=== PATIENT | female | born 1970 | race African-American/Black ===

== ENCOUNTER 2019-05-24 14:47 | Emergency (ER) | payer MEDICAID ==
[~2019-05-24] VITALS: Ht 160 cm; Wt 59.0 kg
[2019-05-24 14:54] VITALS: BP 135/89
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
--- NOTE | 2019-05-24 15:25 | NUR ---
ED Nurse Note: COLLECTED URINE THEN SENT.
[2019-05-24] MEDS ORDERED: NAPROXEN250 MG ORAL (15:26)
[2019-05-24] MEDS ORDERED: ROBAXIN-750750 MG PO (15:26)
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
[2019-05-24] MEDS ORDERED: Ketorolac 30mg Inj IM ONE (15:30)
[2019-05-24] MEDS ORDERED: Acetaminophen 500mg (ES) tab ORAL ONE (15:30)
[2019-05-24 15:42] VITALS: BP 129/82
--- NOTE | 2019-05-24 15:42 | NUR ---
ER DISCHARGE NOTE: Patient is cleared to be discharged per ERMD, pt is aox4, on room air, with stable vital signs. pt was given dc and prescription instructions, pt was able to verbalize understanding, pt id band removed. pt is able to ambulate with steady gait. pt took all belongings.
== END 2019-05-24 15:45 | disposition home or self-care (01) ==
LOC: EMR 15:25
DX: M54.5 Low back pain (principal); M54.6 Pain in thoracic spine; M25.512 Pain in left shoulder; T14.8XXA Other injury of unspecified body region, initial encounter; V43.52XA Car driver injured in collision with other type car in traffic accident, initial encounter; Y92.410 Unspecified street and highway as the place of occurrence of the external cause
CPT/HCPCS: 81025; 96372; J1885; Z7502; 99283

== ENCOUNTER 2019-06-30 07:35 | Inpatient (IN) | payer MEDICAID ==
[2019-06-30] VITALS (13 sets, daily range): BP systolic 104–128; BP diastolic 75–86
[~2019-06-30] VITALS: Ht 157.5 cm; Wt 75.9 kg
[~2019-06-30 07:35] MED LIST: ALBUTEROL SULF8.5 GM INH; FERROUS SULFAT325 MG ORAL; IBUPROFEN600 MG ORAL; NAPROXEN250 MG ORAL; ROBAXIN-750750 MG PO; TAMIFLU75 MG ORAL
--- NOTE | 2019-06-30 07:47 | NUR ---
ED Nurse Note: Pt ambulated to ER d/t productive cough, lightheadedness, SOB. Pt has hx of asthma. Placed on bed on high-oliveira's position; gown. Will continue to monitor.
--- NOTE | 2019-06-30 07:50 | NUR ---
ED Nurse Note: ERMD on bedside.
[2019-06-30] MEDS ORDERED: Albuterol ud Inhalation HHN ONE (08:00)
[2019-06-30] MEDS ORDERED: Ipratropium 0.02% Inh Soln 2.5ml UD HHN ONE (08:00)
--- NOTE | 2019-06-30 08:01 | Emergency Room Report ---
History of Present Illness General Chief Complaint: Upper Respiratory Illness Source: Patient Present Illness HPI Disclaimer: Please note that this report is being documented using [employer] technology. This can lead to erroneous entry secondary to incorrect interpretation by the dictating instrument. HPI: 48-year-old female presents for evaluation of shortness of breath. Patient is in the emergency department 5 days ago diagnosed with a respiratory illness and given albuterol inhalers, Tamiflu and saw her doctor yesterday. Repeat blood work showed low white blood cell count and she was scheduled for further testing by her PMD. She states her shortness of breath has been getting worse over the past few days. Had a near syncopal episode this morning while she woke up. Over last few days she also noted nonbloody voluminous diarrhea. Denies abdominal pain, chest pain, vomiting, fevers. Cough is now resolved. She did not receive a flu shot this year but states she did get a pneumonia vaccine. Reports a history of asthma. PMH: Asthma PSH: Reviewed Allergies: None reported Allergies: Coded Allergies: No Known Allergies (Unverified , 05/24/19) Patient History Last Menstrual Period: 06/16/2019 Nursing Documentation-PMH Past Medical History: No History, Except For Hx Asthma: Yes Review of Systems All Other Systems: negative except mentioned in HPI Physical Exam Vital Signs Date Time Temp Pulse Resp B/P (MAP) Pulse Ox O2 Delivery O2 Flow Rate FiO2 06/30/19 07:39 97.9 120 20 120/76 (91) 96 Room Air General: Awake and alert, no acute distress HEENT: NC/AT. EOMI. moist mucous membranes Neck: Supple, trachea midline Chest Wall: No tenderness, no deformity Cardiovascular: RRR. S1 and S2 normal. No murmur appreciated Resp: Normal work of breathing. No cough, wheezing or crackles appreciated Abdomen: Abdomen is soft, nondistended. Nontender Skin: Intact. No abrasions, laceration or rash over the exposed skin MSK: Normal tone and bulk. Moving all extremities. No obvious deformity. Neuro: Awake and alert. Mentating appropriately. Procedures Critical Care Time Critical Care Time Total critical care time: Approximately 45 minutes Due to a high probability of clinically significant, life threatening deterioration, the patient required the highest level of preparedness to intervene emergently and I personally spent this critical care time directly and personally managing the patient. This critical care time included obtaining a history, examining the patient, pulse oximetry, ordering and reviewing studies , ordering treatments, evaluating response to treatment and updating management plan as needed, frequent reassessment and discussion with other providers as well as arranging for ultimate disposition. This critical to care time was performed to assess and manage the high probability of life-threatening deterioration that could result in multiorgan failure. This critical care time is separate from the separately billable procedures and treating other patients. Medical Decision Making Diagnostic Impression: Primary Impression: Pulmonary emboli ER Course 48-year-old female with a history of asthma and chronic anemia presents for evaluation of shortness of breath and near syncopal episode this morning. She has had an upper respiratory illness for approximately 1 week now. Reports the myalgias and cough have now resolved. She has been taking her Tamiflu and using her inhalers. She arrives tachycardic but no respiratory distress. Lungs are clear. Afebrile. Differential includes was not limited to viral syndrome, dehydration, symptomatic anemia, pneumonia, ACS, PE. Will repeat labs and chest x-ray to evaluate for secondary pneumonia and add a d-dimer to rule out PE. The patient has no risk factors aside from arriving tachycardic. She started taking iron after her last hospitalization is chronic anemia. Has outpatient follow-up with her PMD. Laboratory Tests Test 06/30/19 08:33 06/30/19 10:37 White Blood Count 5.3 K/UL (4.8-10.8) Red Blood Count 4.12 M/UL (4.20-5.40) L Hemoglobin 8.4 G/DL (12.0-16.0) L Hematocrit 26.5 % (37.0-47.0) L Mean Corpuscular Volume 64 FL (80-99) L Mean Corpuscular Hemoglobin 20.3 PG (27.0-31.0) L Mean Corpuscular Hemoglobin Concent 31.6 G/DL (32.0-36.0) L Red Cell Distribution Width 16.2 % (11.6-14.8) H Platelet Count 126 K/UL (150-450) L Mean Platelet Volume 7.8 FL (6.5-10.1) Neutrophils (%) (Auto) 82.9 % (45.0-75.0) H Lymphocytes (%) (Auto) 9.9 % (20.0-45.0) L Monocytes (%) (Auto) 6.5 % (1.0-10.0) Eosinophils (%) (Auto) 0.5 % (0.0-3.0) Basophils (%) (Auto) 0.3 % (0.0-2.0) D-Dimer 22.43 mg/L FEU (0.00-0.49) H Sodium Level 140 MMOL/L (136-145) Potassium Level 3.6 MMOL/L (3.5-5.1) Chloride Level 105 MMOL/L (98-107) Carbon Dioxide Level 24 MMOL/L (21-32) Anion Gap 11 mmol/L (5-15) Blood Urea Nitrogen 7 mg/dL (7-18) Creatinine 0.6 MG/DL (0.55-1.30) Estimate Glomerular Filtration Rate > 60 mL/min (>60) Glucose Level 100 MG/DL (74-106) Calcium Level 8.6 MG/DL (8.5-10.1) Total Bilirubin 0.2 MG/DL (0.2-1.0) Aspartate Amino Transferase (AST) 23 U/L (15-37) Alanine Aminotransferase (ALT) 26 U/L (12-78) Alkaline Phosphatase 76 U/L (46-116) Troponin I 0.589 ng/mL (0.000-0.056) Pro-B-Type Natriuretic Peptide 24 pg/mL (0-125) Total Protein 7.5 G/DL (6.4-8.2) Albumin 3.0 G/DL (3.4-5.0) L Globulin 4.5 g/dL Albumin/Globulin Ratio 0.7 (1.0-2.7) L Prothrombin Time 10.7 SEC (9.30-11.50) Prothrombin Time INR 1.0 (0.9-1.1) Activated Partial Thromboplast Time 26 SEC (23-33) EKG Diagnostic Results EKG Time: 08:31 Rate: tachycardiac Rhythm: NSR ST Segments: no acute changes Other Impression Sinus tachycardia, normal axis, normal intervals, no ST changes Rhythm Strip Diag. Results Rhythm Strip Time: 09:31 EP Interpretation: yes Rate: 100 Rhythm: NSR, no PVC's, no ectopy Chest X-Ray Diagnostic Results Chest X-Ray Diagnostic Results : Chest X-Ray Ordered: Yes # of Views/Limited/Complete: 1 View Indication: Shortness of Breath EP Interpretation: Yes Interpretation: no consolidation, no effusion, no pneumothorax, no acute cardiopulmonary disease Impression: No acute disease Electronically Signed by: Electronically signed by Dr. Arpit Clarke Reevaluation Time: 09:24 Last Vital Signs Date Time Temp Pulse Resp B/P (MAP) Pulse Ox O2 Delivery O2 Flow Rate FiO2 06/30/19 07:39 97.9 120 20 120/76 (91) 96 Room Air Reevaluation Impression Alerted by lab that the patient troponin is elevated greater than 0.5. Aspirin ordered. Patient remains slightly tachycardic on monitor but in no acute distress. EKG remains nonischemic. She will be admitted to SDU for further management. 1130: D-dimer returned significantly elevated and a CTA was ordered. Bilateral pulmonary emboli with right evidence of heart strain are found. Patient given IV heparin bolus and started on heparin drip. Will admit to ICU for further care. Disposition: ADMITTED INPATIENT Condition: Serious Referrals: NOT CHOSEN IPA/,REFERRING (PCP) Arpit Clarke MD Jun 30, 2019 08:01
--- NOTE | 2019-06-30 08:08 | NUR ---
ED Nurse Note: Pt went on x-ray accompanied by tech.
[2019-06-30 08:57] LABS: BASOPHILS % (AUTO) 0.3 % (0.0-2.0); EOSINOPHILS % (AUTO) 0.5 % (0.0-3.0); HEMATOCRIT 26.5 % (37.0-47.0); HEMOGLOBIN 8.4 G/DL (12.0-16.0); LYMPHOCYTES % (AUTO) 9.9 % (20.0-45.0); MEAN CORPUSCULAR VOLUME 64 FL (80-99); MONOCYTES % (AUTO) 6.5 % (1.0-10.0); NEUTROPHILS % (AUTO) 82.9 % (45.0-75.0); PLATELET COUNT 126 K/UL (150-450); RED BLOOD COUNT 4.12 M/UL (4.20-5.40); RED CELL DISTRIBUTION WIDTH 16.2 % (11.6-14.8); WHITE BLOOD COUNT 5.3 K/UL (4.8-10.8)
[2019-06-30 09:04] LABS: ANION GAP 11 mmol/L (5-15); BLOOD UREA NITROGEN 7 mg/dL (7-18); CALCIUM 8.6 MG/DL (8.5-10.1); CARBON DIOXIDE 24 MMOL/L (21-32); CHLORIDE 105 MMOL/L (98-107); CREATININE 0.6 MG/DL (0.55-1.30); POTASSIUM 3.6 MMOL/L (3.5-5.1); SODIUM 140 MMOL/L (136-145)
[2019-06-30 09:16] LABS: ALANINE AMINOTRANSFERASE 26 U/L (12-78); ALBUMIN/GLOBULIN RATIO 0.7 (1.0-2.7); ALKALINE PHOSPHATASE 76 U/L (46-116); ASPARTATE AMINO TRANSFERASE 23 U/L (15-37); BILIRUBIN,TOTAL 0.2 MG/DL (0.2-1.0)
--- NOTE | 2019-06-30 09:16 | Diagnostic Imaging Report ---
Indication: Shortness of breath Technique: One view of the chest Comparison: 06/26/2019 Findings: Lungs and pleural spaces are clear. Heart size is normal. No significant interim change Impression: No acute process
[2019-06-30] MEDS ORDERED: Omnipaque 350 100ml vial INJ PRN (09:45)
[2019-06-30] MEDS ORDERED: Heparin 5000 units/ml inj IV ONE (09:45)
[2019-06-30] MEDS ORDERED: Heparin 25,000u/D5W 500ml 500 ML IV SCH ×3 (09:45→20:00)
--- NOTE | 2019-06-30 09:59 | NUR ---
ED Nurse Note: Pt went on CT via wheelchair, accompanied by tech.
--- NOTE | 2019-06-30 11:06 | Diagnostic Imaging Report ---
ndication: Shortness of breath Technique: IV administration nonionic contrast. Spiral acquisitions obtained from the lung bases to the lung apices. Multiplanar and 3-D reconstructions were generated. Total dose length product 616 mGycm. CTDIvol(s) 54 mGy. Dose reduction achieved using automated exposure control Comparison: none Findings: There is a thin linear filling defect consistent with pulmonary embolus bridging the right and left main pulmonary arteries. This does not appear to be flow-limiting. Filling defects are also seen in the main right upper lobe pulmonary artery extending into segmental branches, within the right middle and lower lobe pulmonary arteries also extending into segmental branches, within the distal main left upper lobe pulmonary artery and extending into segmental branches, and in the distal left lower lobe pulmonary artery and extending into segmental branches. There is no right ventricular dilatation to suggest right heart strain. There is no evidence of pulmonary arterial dilatation. There is no evidence of thoracic aortic aneurysm or dissection. Normal caliber and classic branching anatomy of the great neck vessels. The included upper abdominal visceral vessels are unremarkable. There is mild four-chamber cardiomegaly. The lungs demonstrate a small irregular nodular opacity with a peripheral halo in the left lower lobe, image 60 series 4, measuring 6 mm in diameter. Ill-defined groundglass opacity is seen in the right suprahilar region. The lungs and pleural spaces are otherwise clear. No pericardial effusion. No mediastinal or hilar mass or adenopathy. Unremarkable thyroid. No axillary or chest wall mass or adenopathy. Included upper abdominal anatomy is unremarkable. Impression: Positive for bilateral pulmonary emboli. No evidence of right heart strain Borderline cardiomegaly 6 mm left lower lobe nodule. Recommend short interval 6-12 month follow-up Critical value findings phoned to Dr. Clarke in the emergency room at the time of interpretation The CT scanner at [facility] is accredited by the [employer] and the scans are performed using protocols designed to limit radiation exposure to as low as reasonably achievable to attain images of sufficient resolution adequate for diagnostic evaluation.
--- NOTE | 2019-06-30 15:00 | NUR ---
ED Nurse Note: Pt on bed lying on side-lying position. VSS, on RA, no signs of acute distress noted. Still on heparin drip. Denied pain at this time, will continue to monitor.
--- NOTE | 2019-06-30 16:30 | NUR ---
TRANSFER TO ICU: Patient transferred to ICU as ordered, per Chyna. Report given to JO-ANN Dupree. Belongings and medications given to primary RN. Family and or S/O informed of transfer.
--- NOTE | 2019-06-30 16:45 | NUR ---
NURSE NOTES: RECEIVED PATIENT FROM ER VIA GURNEY. REPORT GIVEN BY JO-ANN STORY. PATIENT IS LYING IN BED, AWAKE, ALERT AND ORIENTED. HOOKED TO BUILDING CARPENTER. ON ROOM AIR. HOOKED TO O2 AT 2L NC. NO SIGNS OF DISTRESS OF THE MOMENT. PIV ON L AC G20 RUNNING HEPARIN DRIP FOLLOWING HOSPITAL PROTOCOL ON DRIP. ORIENTED TO ROOM. THOROUGH SKIN ASSESSMENT DONE. CALL LIGHT WITHIN REACH. BED AT LOWEST POSITION. WILL CONTINUE TO MONITOR.
--- NOTE | 2019-06-30 17:00 | NUR ---
NURSE NOTES: INSERTED NEW PIV ON R AC G20, SL. WILL CONTINUE TO MONITOR.
--- NOTE | 2019-06-30 17:51 | NUR ---
NURSE NOTES: CALLED AND LEFT A MESSAGE TO DR [facility] FOR ADMIT ORDERS. WILL CONTINUE TO MONITOR.
--- NOTE | 2019-06-30 18:01 | NUR ---
NURSE NOTES: SPOKE WITH DR KAUFMAN FOR ADMIT ORDER. WILL CONTINUE TO MONITOR.
--- NOTE | 2019-06-30 18:52 | NUR ---
NURSE NOTES: SEEN AND EXAMINED BY DR SHAE HUTTON NEW ORDERS MADE. WILL CONTINUE TO MONITOR.
--- NOTE | 2019-06-30 19:08 | NUR ---
NURSE NOTES: Received patient from Henri Del Toro. Patient is aaox4, verbal, vss, with no acute distress. Patient is cooperative and well groomed. On command and control officer, ambulates with minimal assistance, 2L NC, IV site left and right AC 20g. Patient is eating with no difficulty. PTT taken at 1837 and waiting for results. Bed at its lowest position, call light in reach and x3 bed rails are up.
--- NOTE | 2019-06-30 19:09 | NUR ---
HAND-OFF: Report given to Gustabo Schaffer RN.
--- NOTE | 2019-06-30 19:10 | NUR ---
NURSE NOTES: Received paient from JO-ANN Del Toro. Patient is aaox4, vss, wit no acute distress. Patient is cooperative and well groomed. patient is on laboratory monitor, 2L NC with a left AC 20g and a right AC 20g IV site. Heparin drip is running at 12u/kg/hr and PTT at 1837 results are pending. No skin issues noted. Bed at its lowest position, call light in reach and x3 bed rails are up. Will continue to monitor.
[2019-06-30] MEDS ORDERED: Heparin 5000 units/ml inj IV SCH (20:00)
--- NOTE | 2019-06-30 20:28 | NUR ---
NURSE NOTES: senior technical manager reported DVT. Will contact
--- NOTE | 2019-06-30 20:31 | NUR ---
NURSE NOTES: Left urgent message with Dr. Fabian messaging service. No call back yet.
[2019-07-01] VITALS (20 sets, daily range): BP systolic 110–148; BP diastolic 66–96
--- NOTE | 2019-07-01 | History and Physical Report ---
DATE OF ADMISSION: 06/30/2019 HISTORY OF PRESENT ILLNESS: This is an elderly 48-year-old female came to the emergency room for feeling short of breath and hypoxic, was found to have a PE. The patient was in the hospital a couple days ago, was given breathing treatment, and H. influenza was negative at that time. PAST MEDICAL HISTORY: None. ALLERGIES: None. MEDICATIONS: None. PHYSICAL EXAMINATION: GENERAL: This is an elderly female in ICU because of PE. VITAL SIGNS: Blood pressure 117/85, pulse 89, respirations 20, temperature is 98.3. SKIN: Good skin turgor. HEENT: NAD. CHEST: Bilateral few crackles. CARDIOVASCULAR: Regular rhythm. ABDOMEN: Soft. Positive bowel sounds. EXTREMITIES: No edema. GENITOURINARY: Deferred. LABORATORY DATA: White counts are 5.3, hemoglobin 8.4, hematocrit 26, platelets are 126. Chemistry panel, BUN 7, creatinine 0.6. Troponin 0.919. IMAGING REPORTS: CT of chest positive for bilateral pulmonary emboli. No evidence of right heart failure. A 6 mm lower lobe nodule. ASSESSMENT AND PLAN: PE. The patient was started on heparin drip. Continue current treatment. We will start heparin drip. Continue Tylenol, oxygen, bronchodilator treatments. We will run H. influenza screen again. Mars Fabian M.D. DR: JUAN JOB#: [id number] CC:
--- NOTE | 2019-07-01 01:24 | NUR ---
NURSE NOTES: Patients voided and JO-ANN Lay helped me clean her. Patient refused bed bath.
--- NOTE | 2019-07-01 04:22 | NUR ---
NURSE NOTES: Melisa called to report PTT of 108. Holding Heparin drip for 30min and restart drip per protocol. Charge nurse notified.
--- NOTE | 2019-07-01 05:25 | NUR ---
NURSE NOTES: Timed PTT for 1100 07/01/19 ordered.
[2019-07-01] MEDS ORDERED: Heparin 25,000u/D5W 500ml 500 ML IV SCH ×2 (06:45→12:48)
--- NOTE | 2019-07-01 06:57 | NUR ---
HAND-OFF: Report given to JO-ANN Del Toro.
--- NOTE | 2019-07-01 06:58 | NUR ---
NURSE NOTES: RECEIVED PATIENT FROM Gustabo TILLEY RN. PATIENT IS LYING IN BED, ASLEEP. PATIENT IS HOOKED TO SENIOR SYSTEMS SOFTWARE ENGINEER. ON 2L NC. NO CARDIO OR RESPI DISTRESS OF THE MOMENT. SHE VOIDS AND USES BEDPAN. PIV'S L AC AND R AC G20 WITH HEPARIN RUNNING AT 1"U"/KG/HR FOLLOWING HOSPITAL PROTOCOL ON DRIP. CALL LIGHT WITHIN RAECH. BED AT LOWEST POSITION. SIDE RAILS UP. WILL CONTINUE TO MONITOR.
--- NOTE | 2019-07-01 09:30 | NUR ---
NURSE NOTES: SEEN AND BY DR KAUFMAN. NEW ORDERS MADE AND CARRIED OUT. INFORMED DR MULLEN FOR CONSULT. ACKNOWLEDGED. BLOOD DRAWN FOR LABS. PATIENT STILL ON HEPARIN DRIP FOLLOWING HOSPITAL PROTOCOL ON DRIP. WILL CONTINUE TO MONITOR.
--- NOTE | 2019-07-01 09:51 | NUR ---
NURSE NOTES: CLARIFYING ORDER FOR LAURENCE FRAZIER FROM DR KAUFMAN. AWAITING FOR CALL BACK.
--- NOTE | 2019-07-01 10:16 | Diagnostic Imaging Report ---
Indication: Bilateral leg pain, recent pulmonary embolus Technique: Grayscale and duplex images of the bilateral lower extremity veins Comparison: none Findings: On the right, grayscale and duplex images demonstrate occlusive thrombus within the popliteal vein, resulting absence of flow on Doppler. This also results in noncompressibility. The remaining venous segments on the right demonstrate no evidence of intraluminal thrombus, normal phasic Doppler waveforms and no evidence of valvular insufficiency and normal compressibility. On the left, grayscale and duplex images demonstrate no evidence of intraluminal thrombus. Normal phasic Doppler waveforms, demonstrating normal augmentation response and no evidence of valvular insufficiency. Normal compressibility Impression: Positive for acute right popliteal deep vein thrombosis in patient with known acute pulmonary embolus
[2019-07-01 10:18] LABS: HEMATOCRIT 27.5 % (37.0-47.0); HEMOGLOBIN 8.6 G/DL (12.0-16.0); MEAN CORPUSCULAR VOLUME 64 FL (80-99); PLATELET COUNT 132 K/UL (150-450); RED BLOOD COUNT 4.26 M/UL (4.20-5.40); WHITE BLOOD COUNT 3.3 K/UL (4.8-10.8)
[2019-07-01 10:27] LABS: ALANINE AMINOTRANSFERASE 26 U/L (12-78); ALBUMIN 2.8 G/DL (3.4-5.0); ALBUMIN/GLOBULIN RATIO 0.6 (1.0-2.7); ALKALINE PHOSPHATASE 70 U/L (46-116); ANION GAP 10 mmol/L (5-15); ASPARTATE AMINO TRANSFERASE 22 U/L (15-37); BILIRUBIN,TOTAL 0.3 MG/DL (0.2-1.0); BLOOD UREA NITROGEN 4 mg/dL (7-18); CALCIUM 8.6 MG/DL (8.5-10.1); CARBON DIOXIDE 27 MMOL/L (21-32); CHLORIDE 106 MMOL/L (98-107); CREATININE 0.6 MG/DL (0.55-1.30); POTASSIUM 3.6 MMOL/L (3.5-5.1); SODIUM 143 MMOL/L (136-145)
--- NOTE | 2019-07-01 11:10 | NUR ---
DIRECTOR OF HEAD START NOTE Pt is admitted to ICU on 06/30/2019. SW met w/ pt and completed psychosocial assessment. Pt presents as A&O4x and cooperative. Pt resides w/ her cousin at [facility] [address] [place] [address]. Pt is , has one adult daughter and receives food stamp only. There is no POLST/AD in the chart. Pt was given information on AD. Pt is the primary decision maker. PT denies hx of mental illness and reports her mother was schizophrenic. Pt denies hx of SI/HI/SA and pt currently denies SI/HI. Emergency contacts provided: Zen Alarcon (Fiance) [phone] and Freda Osorio(daughter) [phone]. Pt is ambulatory w/o DME and is independent w/ ADLs. PT denies tobacco use and substance abuse. Pt declined counseling/tx intervention/resource on substance abuse. Pt did not share any concern/issue/need at this time. Pt plans to return home upon DC. SW to F/U as needed. Signed: 07/01/19 at 1115 by LANCE STONER <Co-Signature Required>
--- NOTE | 2019-07-01 11:45 | NUR ---
NURSE NOTES: NOTED FAMILY MEMBER AT THE BEDSIDE. PATIENT ON ROOM AND USES THE BEDPAN. ABLE TO GET OUT OF THE BED WITH STEADY GAIT. WILL CONTINUE TO MONITOR.
[2019-07-01] MEDS ORDERED: Heparin 5000 units/ml inj IV SCH (12:47)
--- NOTE | 2019-07-01 13:00 | NUR ---
NURSE NOTES: INFORMED DR PALMER TO CONFIRM RE ELIQUIS ORDER FROM DR KAUFMAN. AWAITING FOR CALL BACK.
--- NOTE | 2019-07-01 15:00 | NUR ---
NURSE NOTES: PATIENT WAS ABLE TO USE THE RESTROOM WITH STEADY GAIT. PIV'S SALINE LOCK. NO SIGN SOF DISTRESS. WILL CONTINUE TO MONITOR.
--- NOTE | 2019-07-01 15:30 | NUR ---
CASE MANAGEMENT:INITIAL REVIEW 48 YR OLD FEMALE FROM HOME CC;ACUTE RESP ILLNESS IS;ACUTE CORONARY SYNDROME 97.9 120 20 120/76 96% ON RA H/H 8.4/26.5 PLT 126 TROP 0.589 SI;HEPARIN GTT ADMITTED TO ICU ICU STATUS DCP;FROM HOME
--- NOTE | 2019-07-01 16:05 | NUR ---
TRANSFER TO FLOOR: Patient transferred to 243-1 per hospital bed. Report given to Mignon Young RN. Belongings remains with the pt. Pt stable.
[2019-07-01] MEDS: Eliquis 5mg tablet ORAL SCH (18:00)
[2019-07-01] MEDS ORDERED: Eliquis 5mg tablet ORAL SCH (18:00)
--- NOTE | 2019-07-01 18:15 | Progress Note ---
DATE: 07/01/2019 SUBJECTIVE: This is elderly female, currently lying in bed in ICU, was noted venous duplex last night, was positive DVT. The patient was currently physically doing better. No distress. OBJECTIVE: VITAL SIGNS: Blood pressure 123/74, pulse 83, respirations 17, no fever. CHEST: Bilaterally clear. CARDIOVASCULAR: Regular rhythm. ABDOMEN: Soft. EXTREMITIES: Mild edema. ASSESSMENT: 1. Acute DVT. 2. PE. 3. History of asthma. PLAN: 1. Consider Hematology/Oncology consult and also consider Pulmonary is on the case. 2. Continue apixaban. 3. Continue heparin drip. 4. Continue Tylenol and bedrest at this point. Mars Fabian M.D. DR: FLEX JOB#: [id number] CC:
--- NOTE | 2019-07-01 18:20 | NUR ---
NURSE NOTES: received report from Alverto BUSCH. Patient came from ICU, patient is Tele overflow. Patient awake,alert oriented x4. No SOB. No complain of pain or discomfort. No fever. IV line intact. Instructed patient to use call light for assistance. bed alarm on. bed lock and in low position. Sr on hall monitor Addendum: 07/01/19 at 1859 by DAWIT BOYLE RN HR 82. Call light within easy reach. will continue plan of care
--- NOTE | 2019-07-01 19:04 | NUR ---
HAND-OFF: Report given to Mary Grace Ramos RN
--- NOTE | 2019-07-01 19:10 | NUR ---
NURSE NOTES: Received report from DAWIT BUSCH using SBAR. Patient is awake, alert. On RA with no acute distress noted. vss Afebrile. SR on [employer] head.Denies any pain at this time.call light in reach. bed in locked and alarm on. will continue to monitor.
--- NOTE | 2019-07-01 20:38 | Consultation ---
History of Present Illness General Chief Complaint: Upper Respiratory Illness Present Illness Allergies: Coded Allergies: No Known Allergies (Unverified , 05/24/19) Medication History Scheduled Albuterol Sulfate* (Albuterol Sulfate Mdi*), 2 PUFF INH Q6H Ferrous Sulfate* (Ferrous Sulfate*), 325 MG ORAL DAILY Oseltamivir Phosphate (Tamiflu), 75 MG ORAL TWICE A DAY Discontinued Medications Ibuprofen* (Motrin*), 600 MG ORAL Q8H PRN for For Pain Discontinued Reason: Pt stopped taking med Methocarbamol* (Robaxin-750*), 750 MG PO QID Discontinued Reason: Pt stopped taking med Naproxen* (Naprosyn*), 250 MG ORAL TID PRN for For Pain Discontinued Reason: Pt stopped taking med Patient History Healthcare decision maker Resuscitation status Full Code Advanced Directive on File Physical Exam Last 24 Hour Vital Signs Date Time Temp Pulse Resp B/P (MAP) Pulse Ox O2 Delivery O2 Flow Rate FiO2 07/01/19 18:00 85 20 148/87 (107) 97 07/01/19 17:00 85 20 148/87 (107) 97 07/01/19 16:00 97.7 72 17 110/66 (81) 99 07/01/19 16:00 Room Air 07/01/19 16:00 81 07/01/19 15:00 80 17 131/79 (96) 99 07/01/19 14:00 86 19 144/96 (112) 100 07/01/19 13:00 88 17 125/81 (96) 99 07/01/19 12:07 90 07/01/19 12:00 97.7 88 17 130/73 (92) 100 07/01/19 12:00 Room Air 07/01/19 11:00 85 17 114/70 (85) 100 07/01/19 10:00 81 17 124/77 (93) 99 07/01/19 09:00 83 17 123/74 (90) 100 07/01/19 08:00 84 07/01/19 08:00 98.4 92 12 125/77 (93) 100 07/01/19 08:00 Nasal Cannula 2.0 07/01/19 07:00 78 16 126/74 (91) 100 07/01/19 06:00 98.8 75 15 119/74 (89) 100 07/01/19 05:00 78 17 120/84 (96) 100 07/01/19 04:33 85 07/01/19 04:00 81 18 126/78 (94) 100 07/01/19 04:00 2.0 07/01/19 04:00 Nasal Cannula 2.0 07/01/19 03:00 98.6 87 19 122/78 (93) 100 07/01/19 02:00 83 16 121/79 (93) 100 07/01/19 01:00 75 16 115/77 (90) 100 07/01/19 00:00 Nasal Cannula 2.0 07/01/19 00:00 2.0 07/01/19 00:00 98.2 90 21 133/82 (99) 100 06/30/19 23:00 87 18 123/79 (94) 100 06/30/19 22:00 91 20 121/78 (92) 100 06/30/19 21:00 98.4 87 18 104/83 (90) 100 Intake and Output 06/30/19 07/01/19 19:00 07:00 Intake Total 2261.44266 ml 298.00234 ml Output Total 800 ml Balance 2261.92569 ml -501.97318 ml Intake Oral 250 ml 250 ml IV Total 2011.71666 ml 48.63639 ml Output Urine Total 800 ml # Voids 1 2 Laboratory Tests Test 07/01/19 02:50 07/01/19 09:30 07/01/19 11:15 Activated Partial Thromboplast Time 108 SEC (23-33) H 61 SEC (23-33) H White Blood Count 3.3 K/UL (4.8-10.8) L Red Blood Count 4.26 M/UL (4.20-5.40) Hemoglobin 8.6 G/DL (12.0-16.0) L Hematocrit 27.5 % (37.0-47.0) L Mean Corpuscular Volume 64 FL (80-99) L Mean Corpuscular Hemoglobin 20.1 PG (27.0-31.0) L Mean Corpuscular Hemoglobin Concent 31.2 G/DL (32.0-36.0) L Red Cell Distribution Width 17.0 % (11.6-14.8) H Platelet Count 132 K/UL (150-450) L Mean Platelet Volume 8.0 FL (6.5-10.1) Neutrophils (%) (Auto) % (45.0-75.0) Lymphocytes (%) (Auto) % (20.0-45.0) Monocytes (%) (Auto) % (1.0-10.0) Eosinophils (%) (Auto) % (0.0-3.0) Basophils (%) (Auto) % (0.0-2.0) Differential Total Cells Counted 100 Neutrophils % (Manual) 51 % (45-75) Lymphocytes % (Manual) 35 % (20-45) Monocytes % (Manual) 10 % (1-10) Eosinophils % (Manual) 4 % (0-3) H Basophils % (Manual) 0 % (0-2) Band Neutrophils 0 % (0-8) Nucleated Red Blood Cells 1 /100 WBC Platelet Estimate Decreased L Platelet Morphology Normal Hypochromasia 2+ Anisocytosis 1+ Microcytosis 4+ Spherocytes 2+ Erythrocyte Sedimentation Rate 35 MM/HR (0-20) H Prothrombin Time 10.4 SEC (9.30-11.50) Prothromb Time International Ratio 1.0 (0.9-1.1) Sodium Level 143 MMOL/L (136-145) Potassium Level 3.6 MMOL/L (3.5-5.1) Chloride Level 106 MMOL/L (98-107) Carbon Dioxide Level 27 MMOL/L (21-32) Anion Gap 10 mmol/L (5-15) Blood Urea Nitrogen 4 mg/dL (7-18) L Creatinine 0.6 MG/DL (0.55-1.30) Estimat Glomerular Filtration Rate > 60 mL/min (>60) Glucose Level 126 MG/DL (74-106) H Calcium Level 8.6 MG/DL (8.5-10.1) Total Bilirubin 0.3 MG/DL (0.2-1.0) Aspartate Amino Transf (AST/SGOT) 22 U/L (15-37) Alanine Aminotransferase (ALT/SGPT) 26 U/L (12-78) Alkaline Phosphatase 70 U/L (46-116) Total Protein 7.2 G/DL (6.4-8.2) Albumin 2.8 G/DL (3.4-5.0) L Globulin 4.4 g/dL Albumin/Globulin Ratio 0.6 (1.0-2.7) L Rheumatoid Factor Screen Pending Anti-Nuclear Antibody Screen Pending Height (Feet): 5 Height (Inches): 2.00 Weight (Pounds): 158 Medications Current Medications Medications (Trade) Dose Ordered Sig/Elizabeth Route PRN Reason Start Time Stop Time Status Last Admin Dose Admin Apixaban (Eliquis) 5 mg BID ORAL 07/01/19 18:00 07/31/19 17:59 Assessment/Plan Assessment/Plan: Heme consult note REQ MD: Mars Fabian Chief Complaint: Upper Respiratory Illness RFC: PE and right acute popliteal dvt DOS:07/01/19 ID 48-year-old female presents for evaluation of shortness of breath. Patient is in the emergency department 5 days ago diagnosed with a respiratory illness and given albuterol inhalers, Tamiflu and saw her doctor yesterday. Repeat blood work showed low white blood cell count and she was scheduled for further testing by her PMD. She states her shortness of breath has been getting worse over the past few days. Had a near syncopal episode this morning while she woke up. Over last few days she also noted nonbloody voluminous diarrhea. Denies abdominal pain, chest pain, vomiting, fevers. Cough is now resolved. She did not receive a flu shot this year but states she did get a pneumonia vaccine. Reports a history of asthma. Now dx with pe and dvt, started on heparin gtt, dw Alverto, and changed to elqiuis. PMH: Asthma PSH: Reviewed Allergies: Coded Allergies: No Known Allergies (Unverified , 05/24/19) Patient History Last Menstrual Period: 06/16/2019 Past Medical History: No History, Except For Hx Asthma: Yes Review of Systems All Other Systems: negative except mentioned in HPI Physical Exam General: Awake and alert, no acute distress HEENT: NC/AT. EOMI. moist mucous membranes Neck: Supple, trachea midline Chest Wall: No tenderness, no deformity Cardiovascular: RRR. S1 and S2 normal. Resp: Normal work of breathing. No cough Abdomen: Abdomen is soft, nondistended. Nontender Skin: Intact. No abrasions, laceration or rash over the exposed skin MSK: Normal tone and bulk. Moving all extremities Neuro: Awake and alert. Mentating appropriately. Labs: noted Imaging: reviewed Assessment and Recs: # Pulmonary emboli bilaterally in a young female less than 50 years of age --> agree initially with heparin gtt and now transitioned to eliquis --> obtain once discharged hypercoagulable panel --> anemia w/u as needed --> closely monitor for bleed --> lower duplex reveals evidence of dvt # Right popliteal dvt likely cause of pe --> agree with 3-6 months of anticoagulation --> outpatient hypercoagulable workup --> malignancy workup as well given pe and dvt # Anemia of chronic disease v benita --> anemia panel has been ordered --> limited workup at this time --> for bleed monitor --> consider iron as needed # Sob likely due to anemia and pe --> transfuse as needed # Upper respiratory illness for approximately 1 week now. --> pulm recs prn --> tamiflu given # Tachycardia # Dvt ppx with eliquis The timing of this note does not necessarily reflect the time of the patient was seen. Greatly appreciate consultation. Miller Cavanaugh MD Jul 01, 2019 20:38
[2019-07-01 22:00] LABS: % IRON SATURATION 5 % (15-50); IRON 16 ug/dL (50-175); TOTAL IRON BINDING CAPACITY 306 ug/dL (250-450)
[2019-07-01 22:15] LABS: FERRITIN 18 NG/ML (8-388); LACTATE DEHYDROGENASE 285 U/L (81-234)
--- NOTE | 2019-07-01 23:30 | Consultation ---
DATE OF CONSULTATION: 07/01/2019 PULMONARY CONSULTATION HISTORY OF PRESENT ILLNESS: This is a 48-year-old female, who presented to the emergency room yesterday with shortness of breath. She states she has been unwell for the last few days. She was seen and worked up and during her workup, she was also noted to have had a history of syncope. She also reports some diarrhea. She received evaluation in the emergency room. However, the troponin was elevated and the patient underwent imaging studies including a CT chest and angio, which showed a bilateral pulmonary emboli without any evidence of right heart strain. A small irregular opacity was seen also in the left lower lobe. The patient was admitted to the intensive care unit on heparin drip. At this time, she states she is feeling better. PREVIOUS MEDICAL HISTORY: Asthma only. PREVIOUS SURGERIES: None. ALLERGIES: None. HOME MEDICATIONS: None. REVIEW OF SYSTEMS: Denies any headaches, hematemesis, melena, or hematochezia. PHYSICAL EXAMINATION: GENERAL: Reveals a 48-year-old female. HEENT: Unremarkable. LUNGS: Clear breath sounds bilaterally with normal heart sounds. ABDOMEN: Soft. EXTREMITIES: There is no edema. NEUROLOGIC: Nonfocal. LABORATORY DATA: As discussed above. IMAGING: As discussed above. IMPRESSION: 1. Acute bilateral pulmonary emboli. 2. History of asthma. 3. History of anemia. DISCUSSION: 1. Admit to the hospital. 2. Start heparin drip. 3. We will consider Hematology consultation. 4. May benefit from Xarelto upon discharge. Cullen Collier M.D. DR: IVAN JOB#: [id number] CC:
[2019-07-02] VITALS: BP 132/86
--- NOTE | 2019-07-02 02:00 | NUR ---
NURSE NOTES: Patient is asleep with no s/s of acute distress.Keep NPO after midnight for us Abdomen in the morning.keep patient comfortable.
[2019-07-02 04:00] VITALS: BP 130/60
[2019-07-02 04:52] LABS: BASOPHILS % (AUTO) 0.5 % (0.0-2.0); EOSINOPHILS % (AUTO) 3.2 % (0.0-3.0); HEMATOCRIT 28.2 % (37.0-47.0); HEMOGLOBIN 8.8 G/DL (12.0-16.0); LYMPHOCYTES % (AUTO) 37.5 % (20.0-45.0); MEAN CORPUSCULAR VOLUME 65 FL (80-99); MONOCYTES % (AUTO) 15.1 % (1.0-10.0); NEUTROPHILS % (AUTO) 43.7 % (45.0-75.0); PLATELET COUNT 146 K/UL (150-450); RED BLOOD COUNT 4.35 M/UL (4.20-5.40); RED CELL DISTRIBUTION WIDTH 17.3 % (11.6-14.8); WHITE BLOOD COUNT 4.5 K/UL (4.8-10.8)
--- NOTE | 2019-07-02 06:22 | Hematology/Onc Progress Note ---
Assessment/Plan Assessment/Plan Assessment and Recs: # Pulmonary emboli bilaterally in a young female less than 50 years of age --> agree initially with heparin gtt and now transitioned to eliquis --> obtain once discharged hypercoagulable panel --> anemia w/u as needed --> closely monitor for bleed --> lower duplex reveals evidence of dvt # Right popliteal dvt likely cause of pe --> agree with 3-6 months of anticoagulation --> outpatient hypercoagulable workup --> malignancy workup as well given pe and dvt # Anemia of chronic disease v benita --> anemia panel has been ordered --> limited workup at this time --> for bleed monitor --> hgb trend 8.4-->8.8 --> consider iron as needed # Sob likely due to anemia and pe --> transfuse as needed # Upper respiratory illness for approximately 1 week now. --> pulm recs prn --> tamiflu given # Tachycardia # Dvt ppx with eliquis The timing of this note does not necessarily reflect the time of the patient was seen. Greatly appreciate consultation. Subjective Constitutional: Denies: no symptoms, chills, fever, malaise, weakness, other HEENT: Denies: no symptoms, eye pain, blurred vision, tearing, double vision, ear pain, ear discharge, nose pain, nose congestion, throat pain, throat swelling, mouth pain, mouth swelling, other Cardiovascular: Denies: no symptoms, chest pain, edema, irregular heart rate, lightheadedness, palpitations, syncope, other Respiratory: Denies: no symptoms, cough, shortness of breath, SOB with excertion, SOB at rest, sputum, wheezing, other Gastrointestinal/Abdominal: Denies: no symptoms, abdomen distended, abdominal pain, black stools, tarry stools, blood in stool, constipated, diarrhea, difficulty swallowing, nausea, poor appetite, poor fluid intake, rectal bleeding , vomiting, other Genitourinary: Denies: no symptoms, burning, discharge, frequency, flank pain, hematuria, incontinence, pain, urgency, other Neurologic/Psychiatric: Denies: no symptoms, anxiety, depressed, emotional problems, headache, numbness, paresthesia, pre-existing deficit, seizure, tingling, tremors, weakness, other Allergies: Coded Allergies: No Known Allergies (Unverified , 05/24/19) Subjective 07/02: no events, no bleeding, started on eliquis, tolerating it well Objective Objective Current Medications Medications (Trade) Dose Ordered Sig/Elizabeth Route PRN Reason Start Time Stop Time Status Last Admin Dose Admin Apixaban (Eliquis) 5 mg BID ORAL 07/01/19 18:00 07/31/19 17:59 Last 24 Hour Vital Signs Date Time Temp Pulse Resp B/P (MAP) Pulse Ox O2 Delivery O2 Flow Rate FiO2 07/02/19 04:00 67 07/02/19 04:00 98.8 74 20 130/60 (83) 96 07/02/19 04:00 Room Air 07/02/19 00:00 Room Air 07/02/19 00:00 86 07/02/19 00:00 98.8 85 20 132/86 (101) 98 07/01/19 20:00 82 07/01/19 20:00 98.3 82 20 126/82 (97) 98 07/01/19 20:00 Room Air 07/01/19 18:00 85 20 148/87 (107) 97 07/01/19 17:00 85 20 148/87 (107) 97 07/01/19 16:00 97.7 72 17 110/66 (81) 99 07/01/19 16:00 Room Air 07/01/19 16:00 81 07/01/19 15:00 80 17 131/79 (96) 99 07/01/19 14:00 86 19 144/96 (112) 100 07/01/19 13:00 88 17 125/81 (96) 99 07/01/19 12:07 90 07/01/19 12:00 97.7 88 17 130/73 (92) 100 07/01/19 12:00 Room Air 07/01/19 11:00 85 17 114/70 (85) 100 07/01/19 10:00 81 17 124/77 (93) 99 07/01/19 09:00 83 17 123/74 (90) 100 07/01/19 08:00 84 07/01/19 08:00 98.4 92 12 125/77 (93) 100 07/01/19 08:00 Nasal Cannula 2.0 07/01/19 07:00 78 16 126/74 (91) 100 07/01/19 06:00 98.8 75 15 119/74 (89) 100 07/01/19 05:00 78 17 120/84 (96) 100 07/01/19 04:33 85 07/01/19 04:00 81 18 126/78 (94) 100 07/01/19 04:00 2.0 07/01/19 04:00 Nasal Cannula 2.0 07/01/19 03:00 98.6 87 19 122/78 (93) 100 07/01/19 02:00 83 16 121/79 (93) 100 07/01/19 01:00 75 16 115/77 (90) 100 07/01/19 00:00 Nasal Cannula 2.0 07/01/19 00:00 2.0 07/01/19 00:00 98.2 90 21 133/82 (99) 100 06/30/19 23:00 87 18 123/79 (94) 100 06/30/19 22:00 91 20 121/78 (92) 100 06/30/19 21:00 98.4 87 18 104/83 (90) 100 06/30/19 20:00 94 18 127/76 (93) 100 06/30/19 20:00 87 06/30/19 20:00 2.0 06/30/19 20:00 Nasal Cannula 2.0 06/30/19 19:42 91 18 117/75 (89) 100 06/30/19 19:00 97.8 91 17 115/86 (96) 100 06/30/19 18:00 89 21 117/85 (96) 100 06/30/19 17:00 Nasal Cannula 2.0 06/30/19 17:00 98.3 91 19 117/85 (96) 100 06/30/19 17:00 Room Air 06/30/19 16:30 97.9 89 22 123/76 100 Room Air 21 06/30/19 15:20 97.9 90 21 123/76 100 Room Air 21 06/30/19 13:35 97.9 90 20 124/76 98 Room Air 21 06/30/19 11:42 97.9 92 19 128/86 99 Room Air 21 06/30/19 09:15 97.9 95 16 124/82 98 Room Air 21 06/30/19 08:35 90 18 97 Room Air 21 101 18 96 06/30/19 07:47 97.9 86 20 120/76 96 Room Air 06/30/19 07:47 115 20 Room Air 06/30/19 07:39 97.9 120 20 120/76 (91) 96 Room Air Intake and Output 07/01/19 07/02/19 19:00 07:00 Intake Total 634.35 ml Balance 634.35 ml Intake Oral 550 ml IV Total 84.35 ml # Voids 5 # Bowel Movements 1 Labs Test 06/30/19 08:33 06/30/19 10:37 06/30/19 11:37 06/30/19 18:38 White Blood Count 5.3 K/UL (4.8-10.8) Red Blood Count 4.12 M/UL (4.20-5.40) Hemoglobin 8.4 G/DL (12.0-16.0) Hematocrit 26.5 % (37.0-47.0) Mean Corpuscular Volume 64 FL (80-99) Mean Corpuscular Hemoglobin 20.3 PG (27.0-31.0) Mean Corpuscular Hemoglobin Concent 31.6 G/DL (32.0-36.0) Red Cell Distribution Width 16.2 % (11.6-14.8) Platelet Count 126 K/UL (150-450) Mean Platelet Volume 7.8 FL (6.5-10.1) Neutrophils (%) (Auto) 82.9 % (45.0-75.0) Lymphocytes (%) (Auto) 9.9 % (20.0-45.0) Monocytes (%) (Auto) 6.5 % (1.0-10.0) Eosinophils (%) (Auto) 0.5 % (0.0-3.0) Basophils (%) (Auto) 0.3 % (0.0-2.0) D-Dimer 22.43 mg/L FEU (0.00-0.49) Sodium Level 140 MMOL/L (136-145) Potassium Level 3.6 MMOL/L (3.5-5.1) Chloride Level 105 MMOL/L (98-107) Carbon Dioxide Level 24 MMOL/L (21-32) Anion Gap 11 mmol/L (5-15) Blood Urea Nitrogen 7 mg/dL (7-18) Creatinine 0.6 MG/DL (0.55-1.30) Estimat Glomerular Filtration Rate > 60 mL/min (>60) Glucose Level 100 MG/DL (74-106) Calcium Level 8.6 MG/DL (8.5-10.1) Total Bilirubin 0.2 MG/DL (0.2-1.0) Aspartate Amino Transf (AST/SGOT) 23 U/L (15-37) Alanine Aminotransferase (ALT/SGPT) 26 U/L (12-78) Alkaline Phosphatase 76 U/L (46-116) Troponin I 0.589 ng/mL (0.000-0.056) 0.919 ng/mL (0.000-0.056) Pro-B-Type Natriuretic Peptide 24 pg/mL (0-125) Total Protein 7.5 G/DL (6.4-8.2) Albumin 3.0 G/DL (3.4-5.0) Globulin 4.5 g/dL Albumin/Globulin Ratio 0.7 (1.0-2.7) Prothrombin Time 10.7 SEC (9.30-11.50) Prothromb Time International Ratio 1.0 (0.9-1.1) Activated Partial Thromboplast Time 26 SEC (23-33) 51 SEC (23-33) Test 07/01/19 02:50 07/01/19 09:30 07/01/19 11:15 07/01/19 21:05 Activated Partial Thromboplast Time 108 SEC (23-33) 61 SEC (23-33) White Blood Count 3.3 K/UL (4.8-10.8) Red Blood Count 4.26 M/UL (4.20-5.40) Hemoglobin 8.6 G/DL (12.0-16.0) Hematocrit 27.5 % (37.0-47.0) Mean Corpuscular Volume 64 FL (80-99) Mean Corpuscular Hemoglobin 20.1 PG (27.0-31.0) Mean Corpuscular Hemoglobin Concent 31.2 G/DL (32.0-36.0) Red Cell Distribution Width 17.0 % (11.6-14.8) Platelet Count 132 K/UL (150-450) Mean Platelet Volume 8.0 FL (6.5-10.1) Neutrophils (%) (Auto) % (45.0-75.0) Lymphocytes (%) (Auto) % (20.0-45.0) Monocytes (%) (Auto) % (1.0-10.0) Eosinophils (%) (Auto) % (0.0-3.0) Basophils (%) (Auto) % (0.0-2.0) Differential Total Cells Counted 100 Neutrophils % (Manual) 51 % (45-75) Lymphocytes % (Manual) 35 % (20-45) Monocytes % (Manual) 10 % (1-10) Eosinophils % (Manual) 4 % (0-3) Basophils % (Manual) 0 % (0-2) Band Neutrophils 0 % (0-8) Nucleated Red Blood Cells 1 /100 WBC Platelet Estimate Decreased Platelet Morphology Normal Hypochromasia 2+ Anisocytosis 1+ Microcytosis 4+ Spherocytes 2+ Erythrocyte Sedimentation Rate 35 MM/HR (0-20) Prothrombin Time 10.4 SEC (9.30-11.50) Prothromb Time International Ratio 1.0 (0.9-1.1) Sodium Level 143 MMOL/L (136-145) Potassium Level 3.6 MMOL/L (3.5-5.1) Chloride Level 106 MMOL/L (98-107) Carbon Dioxide Level 27 MMOL/L (21-32) Anion Gap 10 mmol/L (5-15) Blood Urea Nitrogen 4 mg/dL (7-18) Creatinine 0.6 MG/DL (0.55-1.30) Estimat Glomerular Filtration Rate > 60 mL/min (>60) Glucose Level 126 MG/DL (74-106) Calcium Level 8.6 MG/DL (8.5-10.1) Total Bilirubin 0.3 MG/DL (0.2-1.0) Aspartate Amino Transf (AST/SGOT) 22 U/L (15-37) Alanine Aminotransferase (ALT/SGPT) 26 U/L (12-78) Alkaline Phosphatase 70 U/L (46-116) Total Protein 7.2 G/DL (6.4-8.2) Albumin 2.8 G/DL (3.4-5.0) Globulin 4.4 g/dL Albumin/Globulin Ratio 0.6 (1.0-2.7) Reticulocyte Count 0.8 % (0.5-2.0) Iron Level 16 ug/dL (50-175) Total Iron Binding Capacity 306 ug/dL (250-450) Percent Iron Saturation 5 % (15-50) Unsaturated Iron Binding 290 ug/dL (112-346) Ferritin 18 NG/ML (8-388) Lactate Dehydrogenase 285 U/L (81-234) HIV (1&2) Antibody Rapid Negative (NEGATIVE) Test 07/02/19 03:20 White Blood Count 4.5 K/UL (4.8-10.8) Red Blood Count 4.35 M/UL (4.20-5.40) Hemoglobin 8.8 G/DL (12.0-16.0) Hematocrit 28.2 % (37.0-47.0) Mean Corpuscular Volume 65 FL (80-99) Mean Corpuscular Hemoglobin 20.3 PG (27.0-31.0) Mean Corpuscular Hemoglobin Concent 31.3 G/DL (32.0-36.0) Red Cell Distribution Width 17.3 % (11.6-14.8) Platelet Count 146 K/UL (150-450) Mean Platelet Volume 10.3 FL (6.5-10.1) Neutrophils (%) (Auto) 43.7 % (45.0-75.0) Lymphocytes (%) (Auto) 37.5 % (20.0-45.0) Monocytes (%) (Auto) 15.1 % (1.0-10.0) Eosinophils (%) (Auto) 3.2 % (0.0-3.0) Basophils (%) (Auto) 0.5 % (0.0-2.0) Height (Feet): 5 Height (Inches): 2.00 Weight (Pounds): 158 Objective Physical Exam General: Awake and alert, no acute distress HEENT: NC/AT. EOMI. moist mucous membranes Neck: Supple, trachea midline Chest Wall: No tenderness, no deformity Cardiovascular: RRR. S1 and S2 normal. Resp: Normal work of breathing. No cough Abdomen: Abdomen is soft, nondistended. Nontender Skin: Intact. No abrasions, laceration or rash over the exposed skin MSK: Normal tone and bulk. Moving all extremities Neuro: Awake and alert. Mentating appropriately. Miller Cavanaugh MD Jul 02, 2019 06:22
--- NOTE | 2019-07-02 07:25 | NUR ---
NURSE NOTES: Report received from Mary Grace BUSCH.Pt resting in bed awake,alert noted no resp distress or discomfort denies any c/o pain kept NPO for US abdomen,pt aware of NPO status,skin warm and dry IV sites to RAC and LAC intact ,SR up x2 call light within reach ,bed lock in lowest position will continue with plans of care.
--- NOTE | 2019-07-02 07:55 | NUR ---
HAND-OFF: Report given to REMINGTON STOUT RN USING SBAR.NO ACUTE DISTRESS NOTED.
[2019-07-02 08:00] VITALS: BP 127/86
--- NOTE | 2019-07-02 08:15 | NUR ---
NURSE NOTES: Seen by Dr Clemente discussed re plans of care.
[2019-07-02] MEDS: Eliquis 5mg tablet ORAL SCH ×2 (09:37→17:16)
--- NOTE | 2019-07-02 11:00 | Pulmonology Progress Note ---
Assessment/Plan Assessment/Plan IMPRESSION: 1. Acute bilateral pulmonary emboli. 2. History of asthma. 3. History of anemia. DISCUSSION: 1. Continue prsent care 2. Continue heparin drip. 3. Noted Hematology consultation. 4. May benefit from Xarelto upon discharge. Cullen Collier M.D. Subjective Interval Events: Feeling better Constitutional: Reports: no symptoms HEENT: Repors: no symptoms Respiratory: Reports: no symptoms Cardiovascular: Reports: no symptoms Allergies: Coded Allergies: No Known Allergies (Unverified , 05/24/19) Objective Last 24 Hour Vital Signs Date Time Temp Pulse Resp B/P (MAP) Pulse Ox O2 Delivery O2 Flow Rate FiO2 07/02/19 08:00 97.7 80 18 127/86 (100) 95 07/02/19 08:00 90 07/02/19 08:00 Room Air 07/02/19 04:00 67 07/02/19 04:00 98.8 74 20 130/60 (83) 96 07/02/19 04:00 Room Air 07/02/19 00:00 Room Air 07/02/19 00:00 86 07/02/19 00:00 98.8 85 20 132/86 (101) 98 07/01/19 20:00 82 07/01/19 20:00 98.3 82 20 126/82 (97) 98 07/01/19 20:00 Room Air 07/01/19 18:00 85 20 148/87 (107) 97 07/01/19 17:00 85 20 148/87 (107) 97 07/01/19 16:00 97.7 72 17 110/66 (81) 99 07/01/19 16:00 Room Air 07/01/19 16:00 81 07/01/19 15:00 80 17 131/79 (96) 99 07/01/19 14:00 86 19 144/96 (112) 100 07/01/19 13:00 88 17 125/81 (96) 99 07/01/19 12:07 90 07/01/19 12:00 97.7 88 17 130/73 (92) 100 07/01/19 12:00 Room Air Intake and Output 07/01/19 07/02/19 19:00 07:00 Intake Total 634.35 ml 150 ml Balance 634.35 ml 150 ml Intake Oral 550 ml 150 ml IV Total 84.35 ml # Voids 5 1 # Bowel Movements 1 General Appearance: no acute distress HEENT: normocephalic Respiratory/Chest: chest wall non-tender Cardiovascular: normal peripheral pulses Abdomen: normal bowel sounds Microbiology Date/Time Source Procedure Growth Status 06/30/19 19:00 Nasal Nares - Final Complete 06/30/19 19:00 Nasal Nares - Final Complete Laboratory Tests 07/01/19 11:15: Activated Partial Thromboplast Time 61H 07/01/19 21:05: Reticulocyte Count 0.8, Sickle Cell Screen [Pending], PTT Mixing Study [Pending] , APTT Patient/Control Mix [Pending], Mix PTT Incubation Time [Pending], Mix PTT Normal/Saline 1:1 Immediate [Pending], Thrombin Time Normal Plasma [Pending] , Iron Level 16L, Total Iron Binding Capacity 306, Percent Iron Saturation 5L, Unsaturated Iron Binding 290, Ferritin 18, Lactate Dehydrogenase 285H, Methylmalonic Acid [Pending], Hepatitis A IgM Antibody [Pending], Hepatitis B Surface Antigen [Pending], Hepatitis B Core IgM Antibody [Pending], Hepatitis C Antibody [Pending], HIV (1&2) Antibody Rapid Negative 07/02/19 03:20: White Blood Count 4.5L, Red Blood Count 4.35, Hemoglobin 8.8L, Hematocrit 28.2L , Mean Corpuscular Volume 65L, Mean Corpuscular Hemoglobin 20.3L, Mean Corpuscular Hemoglobin Concent 31.3L, Red Cell Distribution Width 17.3H, Platelet Count 146L, Mean Platelet Volume 10.3H, Neutrophils (%) (Auto) 43.7L, Lymphocytes (%) (Auto) 37.5, Monocytes (%) (Auto) 15.1H, Eosinophils (%) (Auto) 3.2H, Basophils (%) (Auto) 0.5 Current Medications Medications (Trade) Dose Ordered Sig/Elizabeth Route PRN Reason Start Time Stop Time Status Last Admin Dose Admin Apixaban (Eliquis) 5 mg BID ORAL 1/30/20 18:00 07/31/19 17:59 07/02/19 09:37 Cullen Collier MD Jul 02, 2019 11:00
--- NOTE | 2019-07-02 11:23 | Diagnostic Imaging Report ---
Indication: Abdominal pain Technique: Grayscale and duplex Doppler imaging of the abdomen performed. Comparison: None Findings: The liver is unremarkable. Doppler interrogation of the main portal vein shows patency with hepatopedal, monophasic flow. There is no biliary ductal dilatation identified. Gallbladder is unremarkable. CBD is 4.3 mm. There demonstrated part of the pancreas, aorta and IVC show no definite abnormalities. Both kidneys appear unremarkable. There is no hydronephrosis. IMPRESSION: No acute findings
[2019-07-02 12:00] VITALS: BP 127/83
--- NOTE | 2019-07-02 15:00 | Progress Note ---
DATE: 07/02/2019 SUBJECTIVE: This is elderly female, currently in bed, comfortable, having echocardiogram. OBJECTIVE: VITAL SIGNS: Blood pressure 130/60, pulse 67, no fever. CHEST: Bilateral crackles. CARDIOVASCULAR: Regular rhythm. ABDOMEN: Soft. EXTREMITIES: CCE. NEUROLOGICAL: Generalized weakness. LABORATORY DATA: White counts are 4.5, hemoglobin 8.8. Chemistry panel, BUN 4, creatinine 0.6. ASSESSMENT: 1. PE. 2. Positive troponin. Cardiology consult was obtained. . PLAN: Continue apixaban. Continue heparin. Hematology/Oncology and Pulmonary is on the case. Mars Fabian M.D. DR: JUAN JOB#: [id number] CC:
--- NOTE | 2019-07-02 15:25 | NUR ---
CASE MANAGEMENT:INITIAL REVIEW 07/02/19 IS:ACUTE CORONARY SYNDROME . 97.7 87 79 20 127/83 97% ON RA WBC 4.5 H/H 8.8/28.2 SI:ELIQUIS PO BID \: STEP DOWN UNIT DCP: FROM HOME PLAN: TROP (+) CONSULT CARDIO HEP PANEL -PENDING OB STOOL -PENDING
[2019-07-02 16:00] VITALS: BP 120/79
--- NOTE | 2019-07-02 18:00 | NUR ---
NURSE NOTES: Dr London at bedside,discussed re plans of care.
--- NOTE | 2019-07-02 18:39 | Cardiology Progress Note ---
Assessment/Plan Assessment/Plan [id number] Objective Last 24 Hour Vital Signs Date Time Temp Pulse Resp B/P (MAP) Pulse Ox O2 Delivery O2 Flow Rate FiO2 07/02/19 12:00 79 07/02/19 12:00 97.7 87 20 127/83 (98) 97 07/02/19 12:00 Room Air 07/02/19 08:00 97.7 80 18 127/86 (100) 95 07/02/19 08:00 90 07/02/19 08:00 Room Air 07/02/19 04:00 67 07/02/19 04:00 98.8 74 20 130/60 (83) 96 07/02/19 04:00 Room Air 07/02/19 00:00 Room Air 07/02/19 00:00 86 07/02/19 00:00 98.8 85 20 132/86 (101) 98 07/01/19 20:00 82 07/01/19 20:00 98.3 82 20 126/82 (97) 98 07/01/19 20:00 Room Air Intake and Output 07/01/19 07/02/19 19:00 07:00 Intake Total 634.35 ml 150 ml Balance 634.35 ml 150 ml Intake Oral 550 ml 150 ml IV Total 84.35 ml # Voids 5 1 # Bowel Movements 1 Laboratory Tests Test 07/01/19 21:05 07/02/19 03:20 Reticulocyte Count 0.8 % (0.5-2.0) Sickle Cell Screen Pending PTT Mixing Study Pending APTT Patient/Control Mix Pending Mix PTT Incubation Time Pending Mix PTT Normal/Saline 1:1 Immediate Pending Thrombin Time Normal Plasma Pending Iron Level 16 ug/dL (50-175) L Total Iron Binding Capacity 306 ug/dL (250-450) Percent Iron Saturation 5 % (15-50) L Unsaturated Iron Binding 290 ug/dL (112-346) Ferritin 18 NG/ML (8-388) Lactate Dehydrogenase 285 U/L (81-234) H Methylmalonic Acid Pending Hepatitis A IgM Antibody Pending Hepatitis B Surface Antigen Pending Hepatitis B Core IgM Antibody Pending Hepatitis C Antibody Pending HIV (1&2) Antibody Rapid Negative (NEGATIVE) White Blood Count 4.5 K/UL (4.8-10.8) L Red Blood Count 4.35 M/UL (4.20-5.40) Hemoglobin 8.8 G/DL (12.0-16.0) L Hematocrit 28.2 % (37.0-47.0) L Mean Corpuscular Volume 65 FL (80-99) L Mean Corpuscular Hemoglobin 20.3 PG (27.0-31.0) L Mean Corpuscular Hemoglobin Concent 31.3 G/DL (32.0-36.0) L Red Cell Distribution Width 17.3 % (11.6-14.8) H Platelet Count 146 K/UL (150-450) L Mean Platelet Volume 10.3 FL (6.5-10.1) H Neutrophils (%) (Auto) 43.7 % (45.0-75.0) L Lymphocytes (%) (Auto) 37.5 % (20.0-45.0) Monocytes (%) (Auto) 15.1 % (1.0-10.0) H Eosinophils (%) (Auto) 3.2 % (0.0-3.0) H Basophils (%) (Auto) 0.5 % (0.0-2.0) Microbiology Date/Time Source Procedure Growth Status 06/30/19 19:00 Nasal Nares - Final Complete 06/30/19 19:00 Nasal Nares - Final Complete Pernell London MD Jul 02, 2019 18:39
--- NOTE | 2019-07-02 19:05 | NUR ---
HAND-OFF: Report given to Sp Montanez RN.
--- NOTE | 2019-07-02 19:26 | NUR ---
NURSE NOTES: Received report from JO-ANN Medellin, pt. in bed awake, A/O x's 4- appears to be forgetful at times, no signs or symptoms of acute cardiac or respiratory distress noted, bed alarm on, side rails up x's3 and safety brakes engaged, bed in low position, call light within easy reach, pt. appears to be resting comfortably watching television, pt. aware to ask for assistance when ambulating, LAC 20G IV intact and patent, safety measures continued, will continue with plan of care.
[2019-07-02 20:00] VITALS: BP 135/83
--- NOTE | 2019-07-02 23:00 | Consultation ---
DATE OF CONSULTATION: 07/02/2019 CARDIOLOGY CONSULTATION CONSULTING PHYSICIAN: Pernell London M.D. REFERRING PHYSICIAN: Mars Fabian M.D. REASON FOR REFERRAL: Abnormal cardiac enzymes. HISTORY OF PRESENT ILLNESS: This is a 48-year-old female who has had some leg swelling for approximately two weeks, has been evaluated and treated for leg swelling, eventually came back to the hospital because of near syncopal episode, was diagnosed with pulmonary embolism and deep vein thrombosis. Abnormal cardiac enzymes were noted during this evaluation. The patient denies any wheezing or any chest pain. There is no PND. No orthopnea. Did have some shortness of breath that she attributes to asthma when it started getting worse. This has been present over the past week or two. There are no palpitations. No pain even when she takes a deep breath except for occasional that lasts only a few seconds on the left side of the chest, not pleuritic in nature. PAST MEDICAL HISTORY: Fairly unremarkable except for history of asthma and general warts. Denies any other medical problems. ALLERGIES: She is not allergic to any medications. SOCIAL HISTORY: She does not smoke, drink, or use drugs. REVIEW OF SYSTEMS: GASTROINTESTINAL: Negative. GENITOURINARY: Negative. PULMONARY: Positive for coughing and wheezing. CONSTITUTIONAL: Negative. NEUROLOGIC: Negative. PHYSICAL EXAMINATION: GENERAL: Shows to be a middle-aged female, in no respiratory distress. NECK: Supple. No jugular venous distention. LUNGS: Clear to auscultation and percussion. CARDIAC: S1 is normal. S2 is normal. Regular rate and rhythm. No heaves, thrills, or gallops noted. ABDOMEN: Soft, nontender. Positive bowel sounds. EXTREMITIES: There is no clubbing, cyanosis, or edema. NEUROLOGIC: She is awake, alert, and responsive. LABORATORY VALUES: A CT that was performed showed bilateral pulmonary emboli, no evidence of right heart strain, borderline cardiomegaly, segment of the lower lobe nodule was noted. Blood tests show white count of 4.5, hemoglobin 8.8, and platelet count of 146. Cardiac enzymes, troponin 0.589 and 0.919. Iron is 16 with 5% saturation. Ferritin of 18. Liver function tests were normal. Coags, INR 1. She has rheumatoid factor that was less than 10. WILLIAM screen is pending. HIV 1 and 2 were negative. Hepatitis serology as ordered by data processing specialist is pending. Venous duplex shows popliteal . ASSESSMENT AND PLAN: 1. Pulmonary emboli, bilateral. 2. Deep venous thrombosis. 3. Anemia. 4. Microcytosis consistent with iron deficiency. Dr. Fabian, this patient was seen in cardiac consultation. The patient has minor troponin abnormalities consistent with known diagnosis of pulmonary embolism. CT scan did not show any RV strain. The patient will have an echocardiogram for evaluation of LV function. She is not tachycardic, not having any hypotension and is rather stable. Her symptoms have been ongoing for approximately 2 weeks apparently. Pernell London M.D. DR: Bakari JOB#: [id number] CC:
[2019-07-03] VITALS: BP 123/84
--- NOTE | 2019-07-03 00:54 | NUR ---
NURSE NOTES: DR. Shelby office called regarding pt. asking something for a headache- per DR. Fabian okay to order- Tylenol 650mg PO Q4hrs prn pain/ fever- orders carried out.
[2019-07-03 04:00] VITALS: BP 108/62
[2019-07-03 06:02] LABS: BASOPHILS % (AUTO) 0.6 % (0.0-2.0); EOSINOPHILS % (AUTO) 3.6 % (0.0-3.0); HEMATOCRIT 28.9 % (37.0-47.0); HEMOGLOBIN 9.1 G/DL (12.0-16.0); LYMPHOCYTES % (AUTO) 37.5 % (20.0-45.0); MEAN CORPUSCULAR VOLUME 65 FL (80-99); MONOCYTES % (AUTO) 12.3 % (1.0-10.0); PLATELET COUNT 153 K/UL (150-450); RED BLOOD COUNT 4.47 M/UL (4.20-5.40); RED CELL DISTRIBUTION WIDTH 17.2 % (11.6-14.8)
[2019-07-03 06:39] LABS: CHOLESTEROL 131 MG/DL (< 200); HDL CHOLESTEROL 44 MG/DL (40-60); TRIGLYCERIDES 34 MG/DL (30-150)
--- NOTE | 2019-07-03 07:12 | NUR ---
HAND-OFF: Report given to Wil, RN, pt. remains stable and no signs of distress noted. Aware to f/u with pcp regarding constipation adn pt. complaining of smear of brown vaginal discharge noticed once while using restroom.
--- NOTE | 2019-07-03 07:15 | NUR ---
NURSE NOTES: Report received from Sp Montanez RN.Pt awake,alert oriented,sitting up on bed eating breakfast noted no resp distress denies any c/o pain or discomfort ,SR on the monitor.
[2019-07-03 08:00] VITALS: BP 114/75
[2019-07-03] MEDS: Eliquis 5mg tablet ORAL SCH (08:57)
--- NOTE | 2019-07-03 10:26 | Pulmonology Progress Note ---
Assessment/Plan Assessment/Plan IMPRESSION: 1. Acute bilateral pulmonary emboli. 2. History of asthma. 3. History of anemia. DISCUSSION: 1. DC home on Xarelto/Eliquis 2. Outpt hypercoag workup per Dr. Osuna Cullen Collier M.D. Subjective Interval Events: None new Constitutional: Reports: no symptoms HEENT: Repors: no symptoms Respiratory: Reports: no symptoms Cardiovascular: Reports: no symptoms Gastrointestinal/Abdominal: Reports: no symptoms Genitourinary: Reports: no symptoms Allergies: Coded Allergies: No Known Allergies (Unverified , 05/24/19) Objective Last 24 Hour Vital Signs Date Time Temp Pulse Resp B/P (MAP) Pulse Ox O2 Delivery O2 Flow Rate FiO2 07/03/19 04:00 Room Air 07/03/19 04:00 98.4 72 18 108/62 (77) 98 07/03/19 03:41 72 07/03/19 01:43 98.0 07/03/19 00:00 98.0 88 18 123/84 (97) 98 07/03/19 00:00 Room Air 07/02/19 23:34 96 07/02/19 20:00 97.0 79 18 135/83 (100) 100 07/02/19 20:00 Room Air 07/02/19 19:38 82 07/02/19 16:00 98.1 90 20 120/79 (93) 95 07/02/19 16:00 Room Air 07/02/19 16:00 88 07/02/19 12:00 79 07/02/19 12:00 97.7 87 20 127/83 (98) 97 07/02/19 12:00 Room Air Intake and Output 07/02/19 07/03/19 19:00 07:00 Intake Total 720 ml Output Total 5 ml Balance 715 ml Intake Oral 720 ml Output Urine Total 5 ml # Voids 2 General Appearance: no acute distress HEENT: normocephalic Respiratory/Chest: chest wall non-tender Cardiovascular: normal peripheral pulses Abdomen: normal bowel sounds Microbiology Date/Time Source Procedure Growth Status 06/30/19 20:30 Nasal Nares MRSA Culture - Final NO METHICILLIN RESISTANT STAPH AUREUS... Complete 06/30/19 19:00 Nasal Nares - Final Complete 06/30/19 19:00 Nasal Nares - Final Complete 06/30/19 18:00 Rectum - Final NO CARBAPENEM-RESISTANT ENTEROBACTERI... Complete 06/30/19 18:00 Rectum VRE Culture - Final NO VANCOMYCIN RESISTANT ENTEROCOCCUS ... Complete Laboratory Tests 07/03/19 05:16: White Blood Count 4.0L, Red Blood Count 4.47, Hemoglobin 9.1L, Hematocrit 28.9L , Mean Corpuscular Volume 65L, Mean Corpuscular Hemoglobin 20.3L, Mean Corpuscular Hemoglobin Concent 31.4L, Red Cell Distribution Width 17.2H, Platelet Count 153, Mean Platelet Volume 8.0, Neutrophils (%) (Auto) 46.0, Lymphocytes (%) (Auto) 37.5, Monocytes (%) (Auto) 12.3H, Eosinophils (%) (Auto) 3.6H, Basophils (%) (Auto) 0.6, Magnesium Level 1.8, Troponin I 0.109H, Triglycerides Level 34, Cholesterol Level 131, LDL Cholesterol 80, HDL Cholesterol 44, Cholesterol/HDL Ratio 3.0L Current Medications Medications (Trade) Dose Ordered Sig/Elizabeth Route PRN Reason Start Time Stop Time Status Last Admin Dose Admin Acetaminophen (Tylenol) 650 mg Q4H PRN ORAL Pain/Temp > 100.5 07/03/19 01:00 08/02/19 00:59 07/03/19 01:13 Apixaban (Eliquis) 5 mg BID ORAL 07/01/19 18:00 07/31/19 17:59 07/03/19 08:57 Apixaban (Eliquis) 5 mg BID ORAL 07/10/19 18:00 08/09/19 17:59 UNV Apixaban (Eliquis) 10 mg BID ORAL 07/03/19 18:00 07/10/19 09:00 UNV Cullen Collier MD Jul 03, 2019 10:26
--- NOTE | 2019-07-03 10:30 | NUR ---
NURSE NOTES: Dr Fabian at bedside,discussed with pt re discharge and F/U appointment,prescription given.
--- NOTE | 2019-07-03 12:20 | NUR ---
NURSE NOTES: Discharge instructions re medications ,indications,and side effects given,and presciptions,pt verbalized understanding.IV heplock to LAC removed and drsg applied.pt discharged and out of the unit awake alert,oriented and ambulatory ,refused to use wheel chair.Belongings like medication at pharmacy,money and wallet and car keys given to pt.Security escorted pt out to her car,pt will be driving her car going home.
--- NOTE | 2019-07-03 16:15 | Discharge Summary ---
DATE OF ADMISSION: 06/30/2019 DATE OF DISCHARGE: 07/03/2019 HISTORY OF PRESENT ILLNESS: The patient is a 48-year-old female came to the emergency room for short of breath and hypoxia. The patient was thinking she has a flu. The patient has visited ER before, two days prior to admission, was sent home for symptomatic treatment. The patient came back, was found to have PE. Further workup was found has the patient has a DVT, Hematology/Oncology consult, and Pulmonary consult was obtained. The patient was placed on heparin drip and added next day Apixaban. The patient told well, no side effect. OBJECTIVE: CURRENT VITAL SIGNS: Blood pressure 108/62, pulse 72, respirations 18, no fever. HEENT: NAD. CHEST: Bilaterally clear. CARDIOVASCULAR: Regular rhythm. ABDOMEN: Soft. EXTREMITIES: No edema. GENITOURINARY: Deferred. LABORATORY DATA: White counts are 4, hemoglobin 9.1, hematocrit 29, platelets are 153. Chemistry panel; BUN 4, creatinine 0.6. Lactic acid is 1.09. ASSESSMENT AND PLAN: 1. PE. 2. DVT. 3. Anemia. We will order iron, folic acid, apixaban. The patient is going to continue apixaban. benefit explained. The patient did agree to take a Full Code, going home, follow up as an outpatient. Mars Fabian M.D. DR: SHELL JOB#: [id number] CC:
[2019-07-03] MEDS ORDERED: Eliquis 5mg tablet ORAL SCH (18:00)
[2019-07-10] MEDS ORDERED: Eliquis 5mg tablet ORAL SCH (18:00)
== END 2019-07-03 12:42 | disposition home or self-care (01) | DRG 299 ==
LOC: EMR 07:48 → ICU 09:15 → EDBEDREQ 11:05 → EDBEDREQSVC 11:05 → EDBEDREQ 15:44 → 2W 07-01 17:51
DX: I82.431 Acute embolism and thrombosis of right popliteal vein (principal); I26.99 Other pulmonary embolism without acute cor pulmonale; J06.9 Acute upper respiratory infection, unspecified; R00.0 Tachycardia, unspecified; D50.9 Iron deficiency anemia, unspecified; J45.909 Unspecified asthma, uncomplicated
CPT/HCPCS: 36415; 71045; 71275; 76700; 80053; 80061; 82728; 83540; 83550; 83615; 83735; 83880; 83921; 84484; 85007; 85025; 85044; 85379; 85610; 85651; 85660; 85730; 86039; 86431; 86703; 86705; 86709; 86710; 86803; 87081; 87340; 93005; 93306; 93970; 96361; 96365; 96366; 96375; 99291; J7030

== ENCOUNTER 2019-07-27 09:13 | Emergency (ER) | payer MEDICAID ==
[~2019-07-27] VITALS: Ht 160 cm; Wt 63.5 kg
[2019-07-27 09:21] VITALS: BP 121/84
[2019-07-27] MEDS ORDERED: ROBAXIN-750750 MG PO (09:39)
[2019-07-27] MEDS ORDERED: IBUPROFEN600 MG ORAL (09:39)
[2019-07-27] MEDS ORDERED: LIDODERM700 M1 TOPIC (09:39)
[2019-07-27] MEDS ORDERED: Ketorolac 30mg Inj IM ONE (09:45)
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
[2019-07-27 10:10] VITALS: BP 121/84
--- NOTE | 2019-07-27 10:10 | NUR ---
ER DISCHARGE NOTE: Patient is cleared to be discharged per ERMD, pt is aox4, on room air, with stable vital signs. pt was given dc and prescription instructions, pt was able to verbalize understanding, pt is able to ambulate with steady gait. pt took all belongings.
== END 2019-07-27 10:10 | disposition home or self-care (01) ==
LOC: EMR 09:50
DX: M62.830 Muscle spasm of back (principal); J45.909 Unspecified asthma, uncomplicated; V43.52XA Car driver injured in collision with other type car in traffic accident, initial encounter; Y92.411 Interstate highway as the place of occurrence of the external cause
CPT/HCPCS: 96372; J1885; Z7502; 99283

== ENCOUNTER 2020-05-20 10:14 | Emergency (ER) | payer MEDICAID, OTHER ==
[~2020-05-20] VITALS: Ht 160 cm; Wt 68.0 kg
[~2020-05-20 10:14] MED LIST changes: +LIDODERM700 M1 TOPIC
[2020-05-20 10:48] VITALS: BP 130/70
[2020-05-20] MEDS ORDERED: Fluorescein Strips RIGHT EYE ONE (11:00)
[2020-05-20] MEDS ORDERED: Tetracaine 0.5% Opth 4ml Soln RIGHT EYE ONE (11:00)
[2020-05-20] MEDS ORDERED: OCUFLOX5 ML RIGHT EYE (11:21)
[2020-05-20 11:36] VITALS: BP 134/72
--- NOTE | 2020-05-21 07:45 | Emergency Room Report ---
History of Present Illness General Chief Complaint: Eye Problems Source: Patient Present Illness HPI 49-year-old female presents with right eye pain. For 3 weeks. Eye appears red. Pain is dull, 5 out of 10, nonradiating. Denies discharge. Denies photophobia or blurry vision. States that she attempted to wear contacts for the first time and it irritated her eye. Radiology Practitioner Assistant checked and stated that there was nothing in her eye however she still continues to feel that there is something in her eye. No other aggravating relieving factors. Denies any other associated symptoms Allergies: Coded Allergies: No Known Allergies (Unverified , 05/24/19) COVID-19 Screening Contact w/high risk pt: No Experienced COVID-19 symptoms?: No COVID-19 Testing performed SCRAP YARD WORKER: No Patient History Past Medical History: asthma Past Surgical History: none Pertinent Family History: none Social History: Denies: smoking, alcohol use, drug use Last Menstrual Period: 3 months ago Now: No Immunizations: UTD Reviewed Nursing Documentation: PMH: Agreed; PSxH: Agreed Nursing Documentation-PMH Past Medical History: No History, Except For Hx Cardiac Problems: No Hx Asthma: Yes Hx Cancer: No Hx Gastrointestinal Problems: No Hx Neurological Problems: No Review of Systems All Other Systems: negative except mentioned in HPI Physical Exam Vital Signs Date Time Temp Pulse Resp B/P (MAP) Pulse Ox O2 Delivery O2 Flow Rate FiO2 05/20/20 10:20 98.1 82 16 130/70 (90) 95 Room Air Sp02 EP Interpretation: reviewed, normal General Appearance: no apparent distress, alert, GCS 15, non-toxic Head: normocephalic, atraumatic Eyes: right eye EOMI, right eye Scleral Injection; left eye normal inspection; bilateral eye PERRL ENT: hearing grossly normal, normal pharynx, no angioedema, normal voice Neck: full range of motion, supple/symm/no masses Respiratory: chest non-tender, lungs clear, normal breath sounds, speaking full sentences Cardiovascular #1: regular rate, rhythm, no edema Cardiovascular #2: 2+ carotid (R), 2+ carotid (L), 2+ radial (R), 2+ radial (L), 2+ dorsalis pedis (R), 2+ dorsalis pedis (L) Gastrointestinal: normal bowel sounds, non tender, soft, non-distended, no guarding, no rebound Rectal: deferred Genitourinary: normal inspection, no CVA tenderness Musculoskeletal: back normal, normal range of motion, gait/station normal, non- tender Neurologic: alert, motor strength/tone normal, oriented x3, sensory intact, responsive, speech normal Psychiatric: judgement/insight normal, memory normal, mood/affect normal, no suicidal/homicidal ideation Reflexes: 3+ bicep (R), 3+ bicep (L), 3+ tricep (R), 3+ tricep (L), 3+ knee (R), 3+ knee (L) Lymphatic: no adenopathy Medical Decision Making Diagnostic Impression: Primary Impression: Conjunctivitis Qualified Codes: H10.31 - Unspecified acute conjunctivitis, right eye ER Course Hospital Course 49-year-old female presents to ED with R eye pain, feel something in his eye Differential diagnoses include: conjunctivitis, traumatic iritis, foreign body, corneal abrasion Clinical course Patient placed on stretcher. After initial history, I applied tetracaine and Fluorescin to the affected eye. Using Wood's lamp I examined the eyes, no evidence of corneal abrasion. I inverted eyelid and saw no evidence of foreign body. Discussed findings with patient. No evidence of foreign body or contact in eye. Persistent redness and pain. Will discharge with antibiotic drops. I will provide Ortho referrals. Diagnosis - conjunctivitis Stable and discharged to home with prescription for Ocuflox. Followup with PMD/Optho. Return to ED if symptoms recur or worsen Last Vital Signs Date Time Temp Pulse Resp B/P (MAP) Pulse Ox O2 Delivery O2 Flow Rate FiO2 05/20/20 11:36 98.1 87 17 134/72 99 Room Air Status: improved Disposition: HOME, SELF-CARE Condition: Stable Scripts Ofloxacin (OCUFLOX) 5 Ml Drops 1 DROP RIGHT EYE QID for 7 Days, ML Prov: Eliot Staton MD 05/20/20 Referrals: Stephane Lama MD, Maziar M.D. MD Patient Instructions: Bacterial Conjunctivitis, [id number] Eliot Staton MD May 21, 2020 07:45
== END 2020-05-20 11:36 | disposition home or self-care (01) ==
LOC: EMR 10:40
DX: H10.31 Unspecified acute conjunctivitis, right eye (principal); J45.909 Unspecified asthma, uncomplicated; Z79.899 Other long term (current) drug therapy
CPT/HCPCS: 99282

== ENCOUNTER 2020-05-25 03:13 | Emergency (ER) | payer OTHER ==
[~2020-05-25] VITALS: Ht 160 cm; Wt 63.5 kg
[~2020-05-25 03:13] MED LIST changes: +OCUFLOX5 ML RIGHT EYE
[2020-05-25 03:25] VITALS: BP 136/88
--- NOTE | 2020-05-25 03:25 | NUR ---
ED Nurse Note: Patient walked into ED c/o right eye irritation "like an eyelash stuck in eye", onset for the past week. Pt states she tried new contact lenses, pt says lens assistant at optometry center dropped contact lense on floor cleansed contact with soap water and saline solution and then placed on eye and has been having eye pain since. Pt states she was seen here states that she was recently seen here for the same reason and was prescribed eye drops but has had no relief in 4 days.
[2020-05-25] MEDS ORDERED: HYDROmorphone 1mg/ml Carpuject IM ONE (03:45)
[2020-05-25] MEDS ORDERED: ACULAR LS OP S1 DROP RIGHT EYE (03:57)
[2020-05-25] MEDS ORDERED: IBUPROFEN600 M1 ORAL (03:57)
[2020-05-25] MEDS ORDERED: HYDROCODON-ACE1 EA15 ORAL (03:57)
[2020-05-25] MEDS ORDERED: POLYTRIM OP SOL10 ML OPHTHALM (03:57)
--- NOTE | 2020-05-25 03:58 | Emergency Room Report ---
History of Present Illness General Chief Complaint: Eye Problems Source: Patient Present Illness HPI This is a 49-year-old female with history of asthma. She presents with chief complaint of right eye pain. Onset for about 5 to 6 days now. She was here 5 days ago for the same thing. She said that she tried a new contact lenses. She said she as she was being fitted for it, contact fell to the floor and the industrial design engineer rinsed it out and put it back in her eyes. Since then is been hurting and throbbing in nature. She was seen here and fluorescein stain was negative. She was placed on Ocuflox and sent home. She said is getting worse. More redness and pain. Especially worse with light. Better in the dark. Pain is 10 out of 10. No other complaint. No trauma. No drainage. 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 COVID-19 Screening: Negative COVID-19 COVID-19 Testing Source: [facility] [place] Patient History Past Medical History: see triage record, old chart reviewed, asthma Past Surgical History: none Pertinent Family History: none Social History: Denies: smoking Last Menstrual Period: n/a Now: No Immunizations: other Reviewed Nursing Documentation: PMH: Agreed; PSxH: Agreed Nursing Documentation-PMH Past Medical History: No History, Except For Hx Cardiac Problems: No Hx Asthma: Yes Hx Cancer: No Hx Gastrointestinal Problems: No Hx Neurological Problems: No Review of Systems Eye: Reports: eye pain, tearing; Denies: blurred vision ENT: Denies: ear pain, nose congestion, throat swelling Respiratory: Denies: cough, shortness of breath Cardiovascular: Denies: chest pain, palpitations Gastrointestinal: Denies: abdominal pain, diarrhea, nausea, vomiting Musculoskeletal: Denies: back pain, joint pain Skin: Denies: rash Neurological: Denies: headache, numbness Endocrine: Denies: increased thirst, increased urine Hematologic/Lymphatic: Denies: easy bruising All Other Systems: negative except mentioned in HPI Physical Exam Vital Signs Date Time Temp Pulse Resp B/P (MAP) Pulse Ox O2 Delivery O2 Flow Rate FiO2 05/25/20 03:21 98.2 87 18 136/88 (104) 95 Room Air Vitals normal Sp02 EP Interpretation: reviewed, normal General Appearance: well appearing, no apparent distress, alert Head: normocephalic, atraumatic Eyes: right eye other - Right eye: No lateral sclera is very injected. Conjunctiva is also injected.; bilateral eye PERRL, bilateral eye EOMI ENT: hearing grossly normal, normal pharynx Neck: full range of motion, supple, no meningismus Respiratory: chest non-tender, lungs clear, normal breath sounds Cardiovascular #1: regular rate, rhythm, no murmur Gastrointestinal: normal bowel sounds, non tender, no mass, no organomegaly, no bruit, non-distended Musculoskeletal: back normal, normal range of motion, gait/station normal Psychiatric: mood/affect normal Medical Decision Making Diagnostic Impression: Primary Impression: Episcleritis of right eye ER Course Patient presents with inflammation of her sclera and conjunctiva. No foreign body. No dendritic lesion. Will discharge home. Last Vital Signs Date Time Temp Pulse Resp B/P (MAP) Pulse Ox O2 Delivery O2 Flow Rate FiO2 05/25/20 03:25 98.2 89 18 136/88 95 Room Air Status: improved Disposition: HOME, SELF-CARE Condition: Stable Scripts Ketorolac Tromethamine (Acular Ls) 5 Ml Drops 1 DROP RIGHT EYE FOUR TIMES A DAY, #5 ML Prov: Tico Saavge MD 05/25/20 Polymyxin/Trimethoprim (Polytrim Eye Drops) 10 Ml Drops 2 DROP OPHTHALM THREE TIMES A DAY, #1 EA Instill in affected eye for 7 days Prov: Tico Savage MD 05/25/20 Ibuprofen* (MOTRIN*) 600 Mg Tablet 600 MG ORAL Q6H PRN for For Pain, #30 TAB 0 Refills Prov: Tico Savage MD 05/25/20 Hydrocodone/Acetaminophen 5-325* (HYDROCODONE/ACETAMINOPHEN 5-325*) 1 Each Tablet 1 TAB ORAL Q6H PRN for For Pain, #15 TAB 0 Refills Prov: Tico Savage MD 05/25/20 Referrals: [facility],REFERRING (PCP) Additional Instructions: Wear eye patch for comfort. Follow-up with your doctor in 2 to 3 days. You may need referral to see an eye doctor. Return if worse. Tico Savage MD May 25, 2020 03:57
[2020-05-25 04:00] VITALS: BP 128/81
--- NOTE | 2020-05-25 04:00 | NUR ---
ER DISCHARGE NOTE: Patient is cleared to be discharged per ERMD, pt is aox4, on room air, with stable vital signs. Eye patch was placed on right eye, pt was given dc and prescription instructions, pt was able to verbalize understanding, pt id band removed. pt is able to ambulate with steady gait. pt took all belongings.
== END 2020-05-25 04:00 | disposition home or self-care (01) ==
LOC: EMR 03:38
DX: H15.101 Unspecified episcleritis, right eye (principal); J45.909 Unspecified asthma, uncomplicated
CPT/HCPCS: 96372; J1170; Z7502; 99283